=== PATIENT | male | born 1970 | race Caucasian/White ===

== ENCOUNTER 2019-04-11 15:31 | Emergency (ER) | payer OTHER ==
--- NOTE | 2019-04-11 19:04 | ER Document Report ---
ED Medical Screen (RME) - General Chief Complaint: Chest Pain Stated Complaint: CHEST PAIN Time Seen by Provider: 04/11/19 18:59 Primary Care Provider: RAFFY SHANNON MD [Primary Care Provider] - Follow up as needed TRAVEL OUTSIDE OF THE [place] IN LAST 30 DAYS: No - HPI Notes: 04/11/19 19:02 Patient is a 48-year-old male with no significant past medical history who presents complaining of left-sided chest pain radiates to the shoulder that began at 10 AM without precipitating event. Patient states that the pain is primarily near his left shoulder at this point and he is able to ambulate without any difficulties or worsening symptoms. He has not had any shortness of breath or dyspnea on exertion associated. He is eating and drinking without difficulty. He is urinating normally. Denies drug allergies. Denies any prolonged immobilization, distance travel, recent surgery/trauma, personal cancer history, hormone use, smoking, or previous DVT/PE. Denies RICO, fever, neck pain, URI, SOB, Abd pain, n/v/d, diaphoresis, dysuria, back pain, or rash. I have treated and performed a rapid initial assessment of this patient. A comprehensive ED assessment and evaluation of the patient, analysis of test results and completion of medical decision making process will be conducted by additional ED providers. PHYSICAL EXAMINATION: GENERAL: Well-appearing, well-nourished and in no acute distress. A&Ox4. Answers questions appropriately. LUNGS: Breath sounds clear to auscultation bilaterally and equal. No wheezes rales or rhonchi. HEART: Regular rate and rhythm without murmurs, rubs, gallops. Extremities: No cyanosis, clubbing, or edema b/l. No calf tenderness. No lower extremity asymmetry. NEUROLOGICAL: Normal speech, normal gait. PSYCH: Normal mood, normal affect. - Related Data Allergies/Adverse Reactions: No Known Allergies Allergy (Unverified 04/11/19 15:33) Physical Exam - Vital signs Vitals: Temp Pulse Resp BP Pulse Ox 98.2 F 96 20 154/64 H 96 04/11/19 16:20 04/11/19 16:20 04/11/19 16:20 04/11/19 16:20 04/11/19 16:20 Course - Vital Signs Vital signs: Temp Pulse Resp BP Pulse Ox 98.2 F 96 20 154/64 H 96 04/11/19 16:20 04/11/19 16:20 04/11/19 16:20 04/11/19 16:20 04/11/19 16:20 Doctor's Discharge - Discharge Referrals: RAFFY SHANNON MD [Primary Care Provider] - Follow up as needed
--- NOTE | 2019-04-11 19:29 | RADIOLOGY REPORT (SQ) ---
EXAM DESCRIPTION: CHEST SINGLE VIEW COMPLETED DATE/TIME: 04/11/2019 7:13 pm REASON FOR STUDY: CP COMPARISON: None. EXAM PARAMETERS: NUMBER OF VIEWS: One view. TECHNIQUE: Single frontal radiographic view of the chest acquired. RADIATION DOSE: NA LIMITATIONS: None. FINDINGS: LUNGS AND PLEURA: No opacities, masses or pneumothorax. No pleural effusion. MEDIASTINUM AND HILAR STRUCTURES: No masses. Contour normal. HEART AND VASCULAR STRUCTURES: Heart normal in size. Normal vasculature. BONES: No acute findings. HARDWARE: None in the chest. OTHER: No other significant finding. IMPRESSION: NO ACUTE RADIOGRAPHIC FINDING IN THE CHEST. TECHNICAL DOCUMENTATION: JOB ID: [id number] [employer]- All Rights Reserved Reading location - IP/workstation name: [email or web address]
[2019-04-11 19:46] LABS: ABSOLUTE EOSINOPHILS # (AUTO) 0.2 10^3/uL (0.0-0.6); ABSOLUTE LYMPHOCYTES (AUTO) 2.1 10^3/uL (0.5-4.7); ABSOLUTE MONOCYTES (AUTO) 0.8 10^3/uL (0.1-1.4); BASOPHILS % (AUTO) 0.4 % (0-2); EOSINOPHILS % (AUTO) 2.7 % (0-6); HEMATOCRIT 45.1 % (37.9-51.0); HEMOGLOBIN 15.7 g/dL (13.5-17.0); LYMPHOCYTES % (AUTO) 25.7 % (13-45); MEAN CORPUSCULAR HEMOGLOBIN 30.1 pg (27.0-33.4); MEAN CORPUSCULAR HGB CONC 34.7 g/dL (32.0-36.0); MEAN CORPUSCULAR VOLUME 87 fl (80-97); MONOCYTES % (AUTO) 10.1 % (3-13); PLATELET COUNT 201 10^3/uL (150-450); RED CELL DISTRIBUTION WIDTH 13.1 % (11.5-14.0); SEGMENTED NEUTROPHILS % (AUTO) 61.1 % (42-78); TOTAL CELLS COUNTED % (AUTO) 100 %; WHITE BLOOD COUNT 8.1 10^3/uL (4.0-10.5)
[2019-04-11 19:54] LABS: ALANINE AMINOTRANSFERASE 46 U/L (21-72); ALBUMIN 4.9 g/dL (3.5-5.0); ALKALINE PHOSPHATASE 41 U/L (38-126); ANION GAP 9 (5-19); ASPARTATE AMINO TRANSFERASE 28 U/L (17-59); BILIRUBIN,DIRECT 0.3 mg/dL (0.0-0.4); BILIRUBIN,TOTAL 0.5 mg/dL (0.2-1.3); BLOOD UREA NITROGEN 21 mg/dL (7-20); CALCIUM 9.8 mg/dL (8.4-10.2); CARBON DIOXIDE 27 mmol/L (22-30); CHLORIDE 103 mmol/L (98-107); GLUCOSE 86 mg/dL (75-110); POTASSIUM 4.5 mmol/L (3.6-5.0); SODIUM 139.2 mmol/L (137-145); TOTAL PROTEIN 7.9 g/dL (6.3-8.2)
[2019-04-11] MEDS ORDERED: DIAZEPAM 5 MG TABLET PO ONE (22:35)
[2019-04-11] MEDS ORDERED: IBUPROFEN 600 MG TABLET PO ONE (22:35)
[2019-04-11] MEDS ORDERED: ACETAMINOPHEN 325 MG TABLET PO ONE (22:35)
--- NOTE | 2019-04-11 22:39 | ER Document Report ---
ED General - General Chief Complaint: Chest Pain Stated Complaint: CHEST PAIN Time Seen by Provider: 04/11/19 18:59 Primary Care Provider: RAFFY SHANNON MD [ACTIVE STAFF] - Follow up in 3-5 days Mode of Arrival: Ambulatory Information source: Patient, Relative, [facility] Records Notes: Patient is a 48-year-old male with no significant past medical history who presents complaining of left-sided chest pain radiates to the shoulder that began at 10 AM without precipitating event. Patient states that the pain is primarily near his left shoulder at this point and he is able to ambulate without any difficulties or worsening symptoms. He has not had any shortness of breath or dyspnea on exertion associated. He is eating and drinking without difficulty. He is urinating normally. Denies drug allergies. Denies any prolonged immobilization, distance travel, recent surgery/trauma, personal cancer history, hormone use, smoking, or previous DVT/PE. Patient also states that he is having neck pain with extension and flexion. He does state that he moved a washer and dryer yesterday with his and awoke this morning with neck pain. Neck pain is present when he moves them this does radiate to his shoulder. Denies RICO, fever, neck pain, URI, SOB, Abd pain, n/v/d, diaphoresis, dysuria, back pain, or rash. Patient does admit that he has not been to a phys ician in over 5 years. TRAVEL OUTSIDE OF THE [place] IN LAST 30 DAYS: No - HPI Onset: This morning Onset/Duration: Gradual, Persistent Quality of pain: Achy Severity: Mild Associated symptoms: Chest pain. denies: Productive cough, Fever, Headache, Nausea, Vomiting, Shortness of breath, Sweating, Weakness Exacerbated by: Movement Relieved by: Remaining still Similar symptoms previously: No Recently seen / treated by doctor: No - Related Data Allergies/Adverse Reactions: No Known Allergies Allergy (Unverified 04/11/19 15:33) Past Medical History - General Information source: Patient, Relative, [facility] Records - Social History Smoking Status: Never Smoker Frequency of alcohol use: Occasional Drug Abuse: None Lives with: Spouse/Significant other Family History: Reviewed & Not Pertinent Patient has suicidal ideation: No Patient has homicidal ideation: No - Medical History Medical History: Negative Renal/ Medical History: Denies: Hx Peritoneal Dialysis Review of Systems - Review of Systems Notes: REVIEW OF SYSTEMS: CONSTITUTIONAL : Denies fever, chills, or sweats. Denies recent illness. Denies weight loss, recent hospitalizations. EENT: Denies visual changes, eye pain. Denies sore throat, oral lesions, difficulty swallowing. CARDIOVASCULAR: + chest pain. Denies palpitations. Denies lower extremity edema. RESPIRATORY: Denies cough. Denies shortness of breath, wheezing. GASTROINTESTINAL: Denies abdominal pain or distention. Denies nausea, vomiting, or diarrhea. Denies blood in vomitus, stools, or per rectum. Denies black, tarry stools. Denies constipation. GENITOURINARY: Denies difficulty urinating, painful urination, frequency, blood in urine, testicular pain or penile discharge. MUSCULOSKELETAL: + back, + neck pain or stiffness. + joint pain denies joint swelling. SKIN: Denies rash, lesions or sores. HEMATOLOGIC : Denies easy bruising or bleeding. LYMPHATIC: Denies swollen glands. NEUROLOGICAL: Denies confusion or altered mental status. Denies loss of consciousness. Denies dizziness or lightheadedness. Denies headache. Denies weakness or paralysis. Denies problems difficulty with ambulation, slurred speech. Denies sensory loss, numbness, or tingling. Denies seizures. PSYCHIATRIC: Denies anxiety or stress. Denies depression, suicidal ideation, or Physical Exam - Vital signs Vitals: Temp Pulse Resp BP Pulse Ox 98.2 F 96 20 154/64 H 96 04/11/19 16:20 04/11/19 16:20 04/11/19 16:20 04/11/19 16:20 04/11/19 16:20 - Notes Notes: PHYSICAL EXAMINATION: GENERAL: Well-appearing, well-nourished and in no acute distress. HEAD: Atraumatic, normocephalic. EYES: Pupils equal round and reactive to light, extraocular movements intact, sclera anicteric, conjunctiva are normal. ENT: Nares patent, oropharynx clear without exudates. Moist mucous membranes. NECK: Normal range of motion, supple without lymphadenopathy LUNGS: Breath sounds clear to auscultation bilaterally and equal. No wheezes rales or rhonchi. HEART: Regular rate and rhythm without murmurs ABDOMEN: Soft, nontender, nondistended abdomen. No guarding, no rebound. No masses appreciated. Musculoskeletal: Normal range of motion, no pitting or edema. No cyanosis. NEUROLOGICAL: Cranial nerves grossly intact. Normal speech, normal gait. Normal sensory, motor exams PSYCH: Normal mood, normal affect. SKIN: Warm, Dry, normal turgor, no rashes or lesions noted. Course - Re-evaluation Re-evalutation: 04/11/19 22:54 Laboratory 04/11/19 04/11/19 04/11/19 19:12 19:12 19:12 WBC 8.1 RBC 5.20 Hgb 15.7 Hct 45.1 MCV 87 MCH 30.1 MCHC 34.7 RDW 13.1 Plt Count 201 Seg Neutrophils % 61.1 Lymphocytes % 25.7 Monocytes % 10.1 Eosinophils % 2.7 Basophils % 0.4 Absolute Neutrophils 5.0 Absolute Lymphocytes 2.1 Absolute Monocytes 0.8 Absolute Eosinophils 0.2 Absolute Basophils 0.0 Sodium 139.2 Potassium 4.5 Chloride 103 Carbon Dioxide 27 Anion Gap 9 BUN 21 H Creatinine 0.97 Est GFR ( Amer) > 60 Est GFR (Non-Af Amer) > 60 Glucose 86 Calcium 9.8 Total Bilirubin 0.5 Direct Bilirubin 0.3 Neonat Total Bilirubin Not Reportable Neonat Direct Bilirubin Not Reportable Neonat Indirect Bili Not Reportable AST 28 ALT 46 Alkaline Phosphatase 41 Troponin I < 0.012 Total Protein 7.9 Albumin 4.9 04/11/19 21:08 WBC RBC Hgb Hct MCV MCH MCHC RDW Plt Count Seg Neutrophils % Lymphocytes % Monocytes % Eosinophils % Basophils % Absolute Neutrophils Absolute Lymphocytes Absolute Monocytes Absolute Eosinophils Absolute Basophils Sodium Potassium Chloride Carbon Dioxide Anion Gap BUN Creatinine Est GFR ( Amer) Est GFR (Non-Af Amer) Glucose Calcium Total Bilirubin Direct Bilirubin Neonat Total Bilirubin Neonat Direct Bilirubin Neonat Indirect Bili AST ALT Alkaline Phosphatase Troponin I < 0.012 Total Protein Albumin Chest X-Ray 04/11/19 19:01 IMPRESSION: NO ACUTE RADIOGRAPHIC FINDING IN THE CHEST. Temp Pulse Resp BP Pulse Ox 98.2 F 96 20 154/64 H 96 04/11/19 16:20 04/11/19 16:20 04/11/19 16:20 04/11/19 16:20 04/11/19 16:20 48-year-old male presents with complaint of chest, neck and left arm pain that started this morning while at work. Patient's pain is worse with movement. Does admit to moving a heavy washer and dryer yesterday. Pain is reproducible with neck movement, arm movements and with palpation to the chest. Vital signs reviewed and within normal limits, except for mild hypertension. EKG was obtained which showed the patient to be in normal sinus rhythm. Patient was placed on phototypesetting equipment monitor. Previous medical records and nursing notes reviewed. He does not appear toxic or dehydrated or in any acute distress. CBC, CMP, cardiac enzymes including delta troponin are unremarkable. Patient did receive Motrin and Valium for his pain and neck stiffness. We did discuss the importance of establishing primary care. HEART Score: History-0 ECG-0 Age-0 Risk Factors-1 Troponin Total: 1 If HEART score is = 3 AND both troponin measurements are normal, the 30 day risk of a major adverse cardiac event (all-cause mortality, myocardial infarction or need for coronary revascularization) is < 1% (Sensitivity 100%, NPV 100%). Chest pain in a patient without evidence of cardiac or other serious etiology on workup today. I discussed with patient that, based on their age, risk factors and emergency department testing today, the likelihood that their symptoms are related to a heart attack is very low (estimated risk of heart attack or over the next 30 days of less than 1%). The patient demonstrates decision making capacity and has verbalized an understanding of these risks to me. Based on this, the patient has chosen to follow-up as an outpatient. Usual chest pain return precautions reviewed. The patient states understanding and agreement with this plan. - Vital Signs Vital signs: Temp Pulse Resp BP Pulse Ox 98.2 F 96 20 154/64 H 96 04/11/19 16:20 04/11/19 16:20 04/11/19 16:20 04/11/19 16:20 04/11/19 16:20 - Laboratory Result Diagrams: 04/11/19 19:12 04/11/19 19:12 Laboratory results interpreted by me: 04/11/19 19:12 BUN 21 H - Diagnostic Test Radiology reviewed: Image reviewed, Reports reviewed - EKG Interpretation by Me EKG shows normal: Sinus rhythm Rate: Normal Rhythm: NSR [place]/QRS: LAHB/LAFB When compared to previous EKG there are: Previous EKG unavailable Discharge - Discharge Clinical Impression: Chest wall pain, Elevated blood pressure reading Chest pain Qualifiers: Chest pain type: unspecified Qualified Code(s): R07.9 - Chest pain, unspecified Cervical strain, acute Qualifiers: Encounter type: initial encounter Qualified Code(s): S16.1XXA - Strain of muscle, fascia and tendon at neck level, initial encounter Condition: Good Disposition: HOME, SELF-CARE Instructions: Chest Wall Pain ([facility]), Chest Pain of Unclear Cause ([facility]), Neck Injury (Cervical Strain) ([facility]) Additional Instructions: You were seen today for chest pain. The exact cause of your pain is unclear. However, based on your cardiac enzyme testing, chest x-ray, and EKG it does not appear that it is from an immediately life-threatening cause at this time. Although your testing here is normal is critical that you follow-up with your primary care physician for continued evaluation of this chest pain and possible stress testing. I recommended you see your physician within the next 24-48 hours to be evaluated for consideration of a stress test. Please return to emergency department immediately if you have worsening of your chest pain, shortness of breath, vomiting, become unable to exert yourself due to pain or difficulty breathing, you pass out, or have any pain that radiates into your arms, jaw, or back. Please also return if you have any additional symptoms that are concerning to you. Recommendations: It is recommended to followup with a primary care doctor within the next 2 days. If you do not have a primary care doctor or you are unable to get an apointment during that time, I left the number for some internal medicine physicians that are affiliated with this [facility]. Dr. Enrike Rowe Weir [address], [place] [address] [phone] Dr Wheeler Address: [address] [facility] [facility] [place] [address] [address] Address: [address] , [place] [address] Prescriptions: Diazepam [Valium 5 mg Tablet] 5 mg PO QIDP PRN #6 tablet PRN Reason: Ibuprofen [Motrin 600 Mg Tablet] 600 mg PO TID #15 tablet Forms: Elevated Blood Pressure Referrals: RAFFY SHANNON MD [ACTIVE STAFF] - Follow up in 3-5 days
[2019-04-11 23:02] VITALS: BP 145/80
--- NOTE | 2019-04-11 23:29 | EKG REPORT ---
SEVERITY:- ABNORMAL ECG - SINUS RHYTHM LAD, CONSIDER LEFT ANTERIOR FASCICULAR BLOCK : Confirmed by: Nazanin Alvarenga MD 11-Apr-2019 23:28:48
== END 2019-04-11 23:08 | disposition home or self-care (01) ==
LOC: ER 15:31
DX: R07.89 Other chest pain (principal); S16.1XXA Strain of muscle, fascia and tendon at neck level, initial encounter; X58.XXXA Exposure to other specified factors, initial encounter; I10 Essential (primary) hypertension; M54.2 Cervicalgia; M79.602 Pain in left arm; M25.519 Pain in unspecified shoulder; I44.4 Left anterior fascicular block
CPT/HCPCS: 36415; 71045; 80053; 84484; 85025; 93005; 93010; 99285